=== PATIENT | female | born 1995 | race Caucasian/White ===

== ENCOUNTER → 2018-03-11 11:57 | Outpatient (CLI) | payer BC, SELFPAY ==
--- NOTE | 2018-03-11 12:01 | US_ITS ---
US OB transvaginal HISTORY: ITS.REASON: US OB Dates ORDERING PHYSICIAN: Keyona Eason MD PATIENT AGE: 22 years COMPARISON: None FINDINGS: An intrauterine gestational sac is present with a pole with a crown-rump length of 0.36cm correlating to gestational age of 6w1d. heart tones are present with an FHR of 102 bpm's. Yolk sac is noted. The right ovary is 2.7 x 2 cm. The left ovary is 3.6 x 3.4 cm. There is a small amount fluid in the cul-de-sac. IMPRESSION: Live intrauterine gestation at 6 weeks and 1 day. Estimated due date 11/03/2018.
[2018-03-11 14:21] LABS: Basophils % 0.3 % (0.1-2.0); Eosinophils # 0.1 K/mm3 (0.0-0.4); Eosinophils % 0.6 % (0.1-12.0); Hematocrit 39.8 % (37.0-47.0); Hemoglobin 13.6 g/dL (12.2-16.2); Lymphocytes # 2.7 K/mm3 (0.7-4.5); Lymphocytes % 29.7 K/mm3 (10-50); Mean Corpuscular HGB Conc 34.1 g/dL (31.8-35.4); Monocytes # 0.5 K/mm3 (0.1-1.0); Monocytes % 5.2 % (1.7-9.3); Neutrophils # 5.7 K/mm3 (1.8-7.8); Neutrophils % 64.1 % (37.0-80.0); Platelet Count 259 K/mm3 (142-424); Red Blood Count 4.68 M/mm3 (4.20-5.40); Red Cell Distribution Width 12.8 % (11.5-17.5)
== END ==
PROVIDERS: PCP Pediatrics; Visit Provider Obstetrics & Gynecology
DX: O26.841 Uterine size-date discrepancy, first trimester (principal)
CPT/HCPCS: 36415; 76817; 84702; 85025

== ENCOUNTER → 2018-03-14 17:06 | Outpatient (CLI) | payer BC, SELFPAY ==
[2018-03-18 07:31] LABS: Neisseria gonorrhoeae, NAA Negative (Negative)
== END ==
PROVIDERS: Visit Provider Obstetrics & Gynecology
DX: Z34.90 Encounter for supervision of normal pregnancy, unspecified, unspecified trimester (principal)
CPT/HCPCS: 87491; 87591

== ENCOUNTER → 2018-04-15 14:26 | Outpatient (CLI) | payer BC, SELFPAY ==
[2018-04-15 14:57] LABS: Basophils % 0.3 % (0.1-2.0); Eosinophils # 0.1 K/mm3 (0.0-0.4); Eosinophils % 1.1 % (0.1-12.0); Hemoglobin 13.5 g/dL (12.2-16.2); Lymphocytes # 2.1 K/mm3 (0.7-4.5); Mean Corpuscular HGB Conc 33.9 g/dL (31.8-35.4); Mean Corpuscular Hemoglobin 29.3 pg (27.0-31.2); Mean Corpuscular Volume 86.4 fl (81-99); Mean Platelet Volume 8.4 fl (7.4-10.4); Monocytes # 0.4 K/mm3 (0.1-1.0); Monocytes % 4.5 % (1.7-9.3); Neutrophils # 5.8 K/mm3 (1.8-7.8); Neutrophils % 69.2 % (37.0-80.0); Platelet Count 221 K/mm3 (142-424); Red Blood Count 4.63 M/mm3 (4.20-5.40); Red Cell Distribution Width 13.1 % (11.5-17.5); White Blood Count 8.3 K/mm3 (4.5-13.0)
[2018-04-17 07:20] LABS: HIV Screen 4th Generation wRfx Non Reactive (Non Reactive)
[2018-04-17 09:42] LABS: Hepatitis B Surface Antigen Negative (Negative); Hepatitis C Antibody <0.1 s/co ratio (0.0-0.9); Rubella Antibodies, IgG 2.02 index (Immune >0.99)
[2018-04-18 06:54] LABS: Rapid Plasma Reagin Ab Titer Non Reactive (NonRea<1:1)
== END ==
PROVIDERS: Visit Provider Obstetrics & Gynecology
DX: Z34.90 Encounter for supervision of normal pregnancy, unspecified, unspecified trimester (principal)
CPT/HCPCS: 36415; 85025; 86592; 86703; 86762; 86850; 87340; 87380; G0432

== ENCOUNTER → 2021-10-03 15:47 | Outpatient (POV) | payer BC, SELFPAY | PROVIDERS: Visit Provider Dermatology | DX: Z00.00 Encounter for general adult medical examination without abnormal findings (principal) ==

== ENCOUNTER 2022-01-27 21:33 | Emergency (ER) | payer BC, SELFPAY ==
[2022-01-27 21:45] VITALS: BP 162/90; PULSE 90; RESP 16; TEMP 36.8; O2SAT 100; BMI 21.5
[2022-01-27 22:10] LABS: Urine Pregnancy, HCG Qual. Positive (Negative)
--- NOTE | 2022-01-27 22:15 | US_ITS ---
PROCEDURE INFORMATION: Exam: US , Transvaginal Exam date and time: 01/27/2022 11:00 PM Age: 26 years old Clinical indication: Lmp or gestational age (in weeks): 8 weeks; Other: Vag bleeding started yesterday; ; Additional info: Vaginal bleeding early PT has rh factor TECHNIQUE: Imaging protocol: Real-time transvaginal obstetrical ultrasound of the maternal pelvis with image documentation. Transvaginal imaging was used for better evaluation of the fetus, adnexa, and/or cervix. COMPARISON: No relevant recent comparison exams. FINDINGS: UTERUS: The uterus is gravid with a single intrauterine gestation. A gestational sac demonstrating pole, yolk sac. Cardiac activity is NOT visualized. Composite gestational age/ pole (CRL 17 mm) corresponds to 8 weeks and 2 days. . ADNEXA: RIGHT ovary measures 3.0 mL and LEFT ovary 5.3 mL. Adnexa are unremarkable without evidence of an adnexal mass or abnormality. No free fluid in the pelvis. IMPRESSION: Findings are diagnostic for DEMISE. COMMENT: RECOMMENDED GUIDELINES FOR EARLY IUP FAILURE: Findings DIAGNOSTIC of intrauterine failure: CRL (crown-rump length) of 7mm or greater and no heartbeat.
--- NOTE | 2022-01-27 22:24 | HMH.EDUROGF ---
Discharge Plan Disposition Patient Disposition: Home, Self-Care Chief Complaint: Vaginal Bleeding Prescriptions Prescriptions: No Action No Known Home Medications Referrals Follow up/Referrals: Edwin Calzada [Primary Care Provider] - See instructions Clinical Impressions Clinical Impression: Rh negative status during , Instructions Patient Instructions: DI for Vaginal Bleeding During Discharge ED Provider: Bryant Hargrove Female Urogenital HPI General Chief complaint: Vaginal Bleeding Stated complaint: 8 weeks with spotting Time Seen by Provider: 01/27/22 22:24 Mode of Arrival: Ambulatory Source of Information: Patient and Medical Record Limitations: No Limitations Description of Symptoms (Recalled from ER Triage Doc. by RN): Pt reports being about 8 weeks according to a home test. pt began to have some spotting today. She denies any pain, cramping, N/V, or being lightheaded. Pt spoke with her on-call OB and they advised her to go to the ER d/t her being RH(-). History of Present Illness HPI Narrative: pt with reported and spotting tonight with hx of rh neg MD Complaint: vaginal bleeding Onset (ago): hour(s) Severity: moderate : Yes Associated symptoms: denies other symptoms Related Data Home Medications Medication Instructions Recorded Confirmed No Known Home Medications 01/17/21 01/17/21 Allergies Allergy/AdvReac Type Severity Reaction Status Date / Time No Known Allergies Allergy Verified 01/17/21 13:31 PFSH PFSH Social History Smoking Status: Never smoker alcohol intake: never substance use type: denies use current occupational status: employed Travel in the last 8 weeks: None ROS Obtained: Yes All systems reviewed & no additional complaints except as documented Physical Exam General General appearance: alert Head Head exam: normocephalic Eye Eye exam: Present PERRL and EOMI ENT ENT exam: Present mucous membranes moist Neck Neck exam: Present trachea midline Respiratory Respiratory exam: Present normal lung sounds bilaterally Cardiovascular Cardiovascular exam: Present regular rate Abdominal Exam Abdominal exam: Present soft Extremities Exam Extremities exam: Present full ROM Neurological Exam Neurological exam: Present alert, oriented X3 and CN II-XII intact Psychiatric Psychiatric exam: Present normal affect Skin Skin exam: Absent rash Medical Decision Making Medical Records Medical records reviewed: Yes I reviewed the patient's medical records. Hebert Inquiry Pt receiving controlled substance: No Vital Signs: 01/27/22 21:45 Temperature 98.2 F Temperature Source Oral Pulse Rate [Right Radial] 90 Respiratory Rate 16 Blood Pressure [Right Arm] 162/90 H Blood Pressure Mean [Right Arm] 114 Blood Pressure Source [Right Arm] Automatic Cuff Blood Pressure Position [Right Arm] Sitting 02 Sat by Pulse Oximetry 100 Oxygen Delivery Method Room Air Lab Data Lab results reviewed: Yes I reviewed the patient's lab results. Lab Results 01/27/22 21:44: Urine HCG, Qual Positive 01/27/22 22:40: WBC 10.2, RBC 4.87, Hgb 13.9, Hct 42.3, MCV 86.8, MCH 28.6, MCHC 33.0, RDW 14.2, Plt Count 243, MPV 9.1, Neut % (Auto) 55.3, Lymph % (Auto) 34.7, [place] % (Auto) 5.5, Eos % (Auto) 2.9, Baso % (Auto) 1.7, Neut # (Auto) 5.6, Lymph # (Auto) 3.5, [place] # (Auto) 0.6, Eos # (Auto) 0.3, Baso # (Auto) 0.2 01/27/22 22:40: Sodium 142, Potassium 3.1 L, Chloride 103, Carbon Dioxide 25, Anion Gap 17.1 H, BUN 6 L, Creatinine 0.50 L, Estimated Creat Clear 147, Estimated GFR 152, Est GFR ( Amer) 183, Glucose 102 H, Calcium 9.5, Total Bilirubin < 0.1 L, AST 25, ALT 18, Alkaline Phosphatase 70, Total Protein 8.1, Albumin 4.8, Globulin 3.3 H, Albumin/Globulin Ratio 1.5 01/27/22 22:40: HCG, Quant 5497 H 01/27/22 22:40: Blood Type O Negative, Antibody Screen Negative Result diagrams: 01/27/22 22:40
[2022-01-27 22:57] LABS: Basophils # 0.2 K/mm3 (0-0.2); Basophils % 1.7 % (0.1-2.0); Eosinophils # 0.3 K/mm3 (0.0-0.4); Eosinophils % 2.9 % (0.1-12.0); Hematocrit 42.3 % (37.0-47.0); Hemoglobin 13.9 g/dL (12.2-16.2); Lymphocytes # 3.5 K/mm3 (0.7-4.5); Lymphocytes % 34.7 % (10-50); Mean Corpuscular Hemoglobin 28.6 pg (27.0-31.2); Mean Corpuscular Volume 86.8 fl (81-99); Mean Platelet Volume 9.1 fl (7.4-10.4); Monocytes # 0.6 K/mm3 (0.1-1.0); Monocytes % 5.5 % (1.7-9.3); Neutrophils # 5.6 K/mm3 (1.8-7.8); Neutrophils % 55.3 % (37.0-80.0); Platelet Count 243 K/mm3 (142-424); Red Blood Count 4.87 M/mm3 (4.20-5.40); Red Cell Distribution Width 14.2 % (11.5-17.5); White Blood Count 10.2 K/mm3 (4.8-10.8)
[2022-01-27 22:59] LABS: Alanine Aminotransferase 18 U/L (12-78); Albumin Level 4.8 g/dl (3.5-5.0); Albumin/Globulin Ratio 1.5 (1.1-1.8); Alkaline Phosphatase 70 U/L (38-126); Anion Gap 17.1 mEq/L (5-15); Aspartate Amino Transferase 25 U/L (14-36); Blood Urea Nitrogen 6 mg/dl (7-17); Calcium 9.5 mg/dl (8.4-10.2); Carbon Dioxide 25 mmol/L (22.0-30.0); Chloride 103 mmol/L (98-107); Creatinine Clearance Estimated 147 mL/min (50-200); Estimated Glomerular Filt Rate 152 ml/min (>60); GFR (African American) 183 ML/MIN (>60); Globulin 3.3 g/dL (1.3-3.2); Glucose 102 mg/dl (74-100); Potassium 3.1 mmoL/L (3.5-5.1); Sodium 142 mmol/L (136-145); Total Protein,Serum 8.1 g/dl (6.3-8.2)
--- NOTE | 2022-01-27 23:01 | PC.NURSE ---
Pt getting [place] at this time
[2022-01-27 23:09] LABS: Bilirubin,Total < 0.1 mg/dl (0.2-1.3)
[2022-01-27 23:16] LABS: HCG,Quantitative 5497 mIU/ml (0-5.42)
--- NOTE | 2022-01-28 | PC.NURSE ---
Pt given a glass of water per request.
--- NOTE | 2022-01-28 00:03 | PC.NURSE ---
Beena speaking to pt at this time.
[2022-01-28 00:17] VITALS: BP 126/83; PULSE 81; RESP 16; TEMP 36.6; O2SAT 100
== END 2022-01-28 00:20 | disposition home or self-care (01) ==
PROVIDERS: Emergency Provider Emergency Medicine; PCP Pediatrics
DX: O20.8 Other hemorrhage in early pregnancy (principal); Z3A.08 8 weeks gestation of pregnancy
CPT/HCPCS: 36415; 76817; 80053; 81025; 84702; 85025; 96372; 99284; J2790

== ENCOUNTER 2022-06-02 11:00 | Emergency (ER) | payer BC, SELFPAY ==
[2022-06-02 11:05] VITALS: BP 105/70; PULSE 114; RESP 22; TEMP 37; O2SAT 100; BMI 22.6
--- NOTE | 2022-06-02 11:22 | EXP.UTC ---
Discharge Plan Disposition Patient Disposition: Home, Self-Care Condition: Good Prescriptions Prescriptions: New amoxicillin [amoxicillin] 500 mg tablet 500 mg PO BID 10 Days Qty: 20 0RF Referrals Follow up/Referrals: Edwin Calzada [Primary Care Provider] - See instructions Activity Restrictions/Add. Instructions Additional Instructions/Restrictions: Start antibiotics today be sure to take it as ordered with the full length of time although you should start feeling better in 24-48 hours. Change toothbrush and toothpaste 24-48 hours after starting antibiotics Tylenol or Motrin as needed for fever or pain Encourage fluids, water, Gatorade, Powerade, try cold fluids, popsicles, ice cream will make it feel better You are contagious for 24 hours. Avoid kissing anyone, no eating or drinking after anyone. You are contagious. Follow-up the ER for new or worsening symptoms or no noticeable improvement over the next 24-48 hours. Follow-up with PCP this week. Clinical Impressions Clinical Impression: Strep sore throat Instructions Patient Instructions: DI for Strep Throat [facility]charge [facility] General Stated complaint: Sore throat bodyaches Mode of Arrival: Ambulatory Source of Information: Patient Time Seen by Provider: 06/02/22 11:22 Description of Symptoms (Recalled from Triage Doc. by RN): body aches and sore throat HEENT Symptoms (Recalled from RN notes): Yes Resp Symptoms (Recalled from RN notes): Yes History of Present Illness Provider Complaint: 26 yr old female presents for sore throat and body aches Related Data Previous Rx's Medication Instructions Recorded amoxicillin 500 mg tablet 500 mg PO BID 10 days #20 tabs 06/02/22 Allergies Allergy/AdvReac Type Severity Reaction Status Date / Time No Known Allergies Allergy Verified 01/17/21 13:31 [facility] Disclaimer: The information contained in this section may have been updated after the patient was seen, as this information can be updated by other users. Medical History (Updated 06/02/22 @ 11:34 by Christiane Verma ([facility]), [employer]) No significant past medical history Social History , [employer]) Smoking Status: Never smoker alcohol intake: never substance use type: denies use current occupational status: employed Travel in the last 8 weeks: None ROS Obtained: Yes All systems reviewed & no additional complaints except as documented Constitutional Constitutional: Reports system reviewed and no additional complaints, except as documented, Reports as per HPI and Reports fever(s) Eyes Eyes: Reports system reviewed and no additional complaints, except as documented ENT Ears, Nose, Mouth, and Throat: Reports system reviewed and no additional complaints, except as documented, Reports as per HPI and Reports sore throat Cardiovascular Cardiovascular: Reports system reviewed and no additional complaints, except as documented Respiratory Respiratory: Reports system reviewed and no additional complaints, except as documented Gastrointestinal Gastrointestingal: Reports system reviewed and no additional complaints, except as documented Integumentary/Breasts Skin/Breast: Reports system reviewed and no additional complaints, except as documented Neurologic Neurologic: Reports system reviewed and no additional complaints, except as documented Endocrine Endocrine: Reports system reviewed and no additional complaints, except as documented Hematologic/Lymphatic Henatologic/Lymphatic: Reports system reviewed and no additional complaints, except as documented Physical Exam General General appearance: alert and in no apparent distress Head Head exam: atraumatic, normocephalic and normal inspection Eye Eye exam: Present normal appearance and PERRL ENT ENT exam: Present mucous membranes moist, TM's normal bilaterally and normal external ear exam Expanded ENT Exam Throat e
[2022-06-02 11:24] LABS: UTC Strep Screen (Rapid) Positive (Negative)
[2022-06-02 11:31] VITALS: BP 105/70; PULSE 114; RESP 22; TEMP 37; O2SAT 100
== END 2022-06-02 11:34 | disposition home or self-care (01) ==
PROVIDERS: Emergency Provider Nurse Practitioner Family; PCP Pediatrics
DX: J02.0 Streptococcal pharyngitis (principal)
CPT/HCPCS: 87880; 99212; 99213; G0463

== ENCOUNTER 2023-12-11 12:07 | Emergency (ER) | payer BC, SELFPAY ==
[2023-12-11 12:20] VITALS: BP 153/90; PULSE 111; RESP 20; TEMP 36.6; O2SAT 100; BMI 23.0
[2023-12-11 12:31] LABS: UTC Pregnancy Test, Urine Negative (Negative)
--- NOTE | 2023-12-11 12:39 | ED_ITS ---
Discharge Plan Disposition Patient Disposition: Home, Self-Care Condition: Good Prescriptions Prescriptions: New azithromycin [Zithromax] 250 mg tablet 250 mg PO UD DOSE PK Qty: 6 0RF Rx Instructions: Take two (2) tablets today, then one (1) tablet days #2 thru #5 methylprednisolone 4 mg Tablets,Dose Pack 4 mg PO DIRECTED 6 Days Qty: 21 0RF Rx Instructions: Take 1 pack as directed for 6 days [id number] [Bromfed DM] 2-30-10 mg/5 mL Syrup 5 ml PO Q6H PRN (Reason: Cough) Qty: 240 0RF Referrals Follow up/Referrals: Edwin Calzada [Primary Care Provider] - See instructions Activity Restrictions/Add. Instructions Additional Instructions/Restrictions: Drink plenty of fluids. Take tylenol or ibuprofen for pain or fever. Take the medications as directed. Follow up with your regular doctor. GO TO THE ER FOR ANY WORSENING SYMPTOMS Clinical Impressions Clinical Impression: Sinusitis, Bronchitis Stand Alone Forms Stand Alone Forms: Work/School Release Instructions Patient Instructions: DI for Sinusitis, DI for Acute Bronchitis Print Language Print Language: Wolof Discharge ED Provider: Sergio Santoyo [facility] General Stated complaint: headache,congestion, dizziness, cough Mode of Arrival: Ambulatory Source of Information: Patient Limitations: No Limitations Time Seen by Provider: 12/11/23 12:39 Description of Symptoms (Recalled from Triage Doc. by RN): PATIENT C/O COUGH AND CONGESTION X 2 WEEKS AND DIZZINESS THAT STARTED TODAY HEENT Symptoms (Recalled from RN notes): Yes Resp Symptoms (Recalled from RN notes): Yes Skin Symptoms (Recalled from RN notes): No MS Symptoms (Recalled from RN notes): No Functional Status (Recalled from RN notes): WNL History of Present Illness Provider Complaint: She states that for the past 2 weeks she has had sinus congestion, sore throat, and chest congestion. She has had a productive cough with yellowish sputum. She denies any fever/chills/body aches. Related Data Previous Rx's ?Medication ?Instructions ?Recorded azithromycin 250 mg tablet 250 mg PO UD DOSE PK #6 tabs 12/11/23 (Zithromax) orsqahfyvoobpsb-eyphvipcykkmkza-RR 5 ml PO Q6H PRN Cough #240 mL 12/11/23 2 mg-30 mg-10 mg/5 mL oral syrup (Bromfed DM) methylprednisolone 4 mg tablets in 4 mg PO DIRECTED 6 days #21 tabs 12/11/23 a dose pack Allergies Allergy/AdvReac Type Severity Reaction Status Date / Time No Known Allergies Allergy Verified 01/17/21 13:31 Worker's Comp Is this a Worker's Comp case?: No PFSH [facility] Disclaimer: The information contained in this section may have been updated after the patient was seen, as this information can be updated by other users. Medical History (Updated 12/11/23 @ 12:44 by Sergio Santoyo APRN) Anxiety Social History , [place]) Smoking Status: Never smoker alcohol intake: never substance use type: denies use current occupational status: employed Travel in the last 8 weeks: None ROS Obtained: Yes All systems reviewed & no additional complaints except as documented Constitutional Constitutional: Reports poor appetite Eyes Eyes: Reports system reviewed and no additional complaints, except as documented ENT Ears, Nose, Mouth, and Throat: Reports as per HPI Cardiovascular Cardiovascular: Reports system reviewed and no additional complaints, except as documented and Denies chest pain Respiratory Respiratory: Denies shortness of breath, Reports chest congestion, Reports cough, Denies stridor and Denies wheezing Gastrointestinal Gastrointestingal: Reports system reviewed and no additional complaints, except as documented; Denies abdominal pain, diarrhea or vomiting Musculoskeletal Musculoskeletal: Reports system reviewed and no additional complaints, except as documented and Denies arthralgias Integumentary/Breasts Skin/Breast: Reports system reviewed and no additional complaints, except as documented and Denies rash Neurologic Neurologic: Denies paresthesias Allergic/Immunologic Allergic/Immunologic: Denies wheezing Physical Exam General General appearance: alert and in no apparent distress Eye Eye exam: Present normal appearance, PERRL and EOMI ENT ENT exam: Present mucous membranes moist and normal external ear exam Expanded ENT Exam External ear exam: Present normal external inspection TM/Canal exam: Bilateral TM: erythema and bulging Nose exam: Absent sinus tenderness Nasal speculum exam: Bilateral: normal Mouth exam: Present normal external inspection; Absent drooling Teeth exam: Present normal inspection Throat exam: Present tonsillar erythema and tonsillomegaly Neck Neck exam: Present normal inspection, full ROM and trachea midline; Absent tenderness, lymphadenopathy or thyromegaly Chest Chest inspection: Present normal inspection and symmetric chest wall rise; Absent tenderness or rash Respiratory Respiratory exam: Present normal lung sounds bilaterally; Absent respiratory distress, wheezes, stridor or accessory muscle use Cardiovascular Cardiovascular exam: Present regular rate, normal rhythm and normal heart sounds Abdominal Exam Abdominal exam: Present soft; Absent distention, tenderness, guarding, rebound or rigidity Extremities Exam Extremities exam: Present normal inspection, full ROM and normal capillary refill; Absent tenderness or calf tenderness Back Exam Back exam: Present normal inspection and full ROM; Absent tenderness Neurological Exam Neurological exam: Present alert and oriented X3 Psychiatric Psychiatric exam: Present normal affect and normal mood Skin Skin exam: Present warm, dry, intact and normal color Lymphatic Lymphatic Findings: no adenopathy Medical Decision Making Medical Records Medical records reviewed: No I reviewed the patient's medical records. Hebert Inquiry Pt receiving controlled substance: No Vital Signs: 12/11/23 12:20 Temperature 97.8 F Temperature Source Oral Pulse Rate [Right Brachial] 111 H Respiratory Rate 20 Blood Pressure [Right Arm] 153/90 H Blood Pressure Mean [Right Arm] 111 Blood Pressure Source [Right Arm] Automatic Cuff Blood Pressure Position [Right Arm] Sitting 02 Sat by Pulse Oximetry 100 Oxygen Delivery Method Room Air Lab Data Lab results reviewed: Yes I reviewed the patient's lab results. Lab Results 12/11/23 12:30: [facility] Clinic Negative
[2023-12-11 12:46] VITALS: BP 153/90; PULSE 111; RESP 20; TEMP 36.6; O2SAT 100
== END 2023-12-11 12:50 | disposition home or self-care (01) ==
PROVIDERS: Emergency Provider Nurse Practitioner Family; PCP Pediatrics
DX: U07.1 COVID-19 (principal); J20.9 Acute bronchitis, unspecified; J01.90 Acute sinusitis, unspecified; R07.0 Pain in throat
CPT/HCPCS: 81025; 87635; 99212; 99214; G0463